=== PATIENT | female | born 2000 | race Hispanic/Latino ===

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

== ENCOUNTER 2019-09-25 07:20 | Emergency (ER) | payer SELFPAY | END 2019-09-25 08:48 | disposition short-term general hospital (02) | LOC: ERS 07:20 | DX: T76.21XA Adult sexual abuse, suspected, initial encounter (principal) | CPT/HCPCS: 99284 ==

== ENCOUNTER 2020-09-30 05:42 | Emergency (ER) | payer BC ==
[2020-09-30] MEDS ORDERED: Ketorolac Tromethamine 30 MG/ML VIAL ONE (06:06)
[2020-09-30] MEDS ORDERED: Ondansetron PF 4 MG/2 ML Vial ONE (06:06)
[2020-09-30 06:24] LABS: Hemoglobin 14.6 g/dL (12.0-16.0); Mean Corpuscular HGB CONC 31.8 g/dL (32.0-36.0); Mean Corpuscular Hemoglobin 27.8 pg (27.0-31.0); Mean Corpuscular Volume 87.3 fL (78.0-98.0); Mean Platelet Volume 9.2 fL (7.4-10.4); Platelet Count 179 thou/uL (130-400); RBC Distribution Width 12.1 % (11.5-14.5); Red Blood Cell (RBC) Count 5.24 mill/uL (4.20-5.40); White Blood Cell (WBC) Count 7.2 thou/uL (4.8-10.8)
[2020-09-30 06:30] LABS: BHCG - Serum Negative (NEGATIVE); Pregs Control Background? CLEAR/WHITE (CLR/WHITE); Pregs Control Bar Appear? YES (CONTROL BAR)
[2020-09-30 06:42] LABS: ALT (SGPT) 46 U/L (8-55); AST (SGOT) 64 U/L (5-34); Albumin 3.7 g/dL (3.5-5.0); Alkaline Phosphatase 99 U/L (40-110); Anion Gap 13 mmol/L (10-20); BUN (Urea Nitrogen) 9 mg/dL (7.0-18.7); Bilirubin, Total 0.3 mg/dL (0.2-1.2); Calc. Creatinine Clearance 0 mL/min (70-130); Calcium 8.7 mg/dL (7.8-10.44); Carbon Dioxide 24 mmol/L (22-29); Chloride 105 mmol/L (98-107); Globulin 3.5 g/dL (2.4-3.5); Glucose 105 mg/dL (70-105); Lipase 30 U/L (8-78); Potassium 4.1 mmol/L (3.5-5.1); Protein, Total 7.2 g/dL (6.0-8.3); Sodium 138 mmol/L (136-145)
[2020-09-30 06:48] LABS: Lymphocytes 66 % (21-51); MDiff Complete? YES; Neutrophil 30 % (42-75); Platelet Morphology Comment Appears Adequate; RBC Morphology Normal; Reactive Lymphocytes 4 % (0-10)
[2020-09-30 07:31] LABS: Bilirubin Negative (Negative); Blood, Urine Negative (Negative); Clarity Clear (Clear); Glucose, Urine (Dipstick) Normal (Negative); Ketone, Urine Negative (Negative); Leukocyte Negative Leu/uL (Negative); Nitrite Negative (Negative); Protein, Urine (Dipstick) Negative (Neg-Trace); Specific Gravity, Urine 1.019 (1.002-1.036); Urobilinogen Normal mg/dL (Less than 2); pH, Urine 6.5 (5.0-9.0)
== END 2020-09-30 08:04 | disposition home or self-care (01) ==
LOC: ERS 05:42
DX: R10.33 Periumbilical pain (principal); R11.0 Nausea
CPT/HCPCS: 80053; 81003; 83690; 84703; 85025; 96374; 96375; J1885; J2405

== ENCOUNTER 2020-11-01 01:32 | Emergency (ER) | payer BC ==
[2020-11-01] MEDS ORDERED: Mag-Al 1200 mg/1200 mg/30 ML UDCUP ONE (02:11)
[2020-11-01] MEDS ORDERED: Lidocaine Viscous Sol 2% 15 ml UD Cup ONE (02:11)
[2020-11-01] MEDS ORDERED: Ondansetron ODT 4 MG TAB ONE (02:12)
[2020-11-01 02:32] LABS: Bilirubin Negative (Negative); Blood, Urine Negative (Negative); Clarity Turbid (Clear); Glucose, Urine (Dipstick) Normal (Negative); Ketone, Urine Negative (Negative); Leukocyte Negative Leu/uL (Negative); Nitrite Negative (Negative); Protein, Urine (Dipstick) Negative (Neg-Trace); Specific Gravity, Urine 1.011 (1.002-1.036); Urobilinogen Normal mg/dL (Less than 2); pH, Urine 7.5 (5.0-9.0)
[2020-11-01 02:36] LABS: Pregnancy Test - Urine (BHCG) Negative (Negative); Pregu Control Background? CLEAR/WHITE (CLR/WHITE); Pregu Control Bar Appear? YES (CONTROL BAR); Specific Gravity 1.011 (1.002-1.036)
[2020-11-01] MEDS ORDERED: Ketorolac Tromethamine 30 MG/ML VIAL ONE (03:04)
== END 2020-11-01 03:11 | disposition home health service (06) ==
LOC: ERS 01:32
DX: K59.00 Constipation, unspecified (principal)
CPT/HCPCS: 81003; 81025; 96372; 99284; J1885; Q0162

== ENCOUNTER 2021-11-28 06:49 | Emergency (ER) | payer BC, SELFPAY ==
[2021-11-28] MEDS ORDERED: Dicyclomine 20 MG TAB ONE ×2 (07:14→07:19)
[2021-11-28] MEDS ORDERED: Ondansetron ODT 8 MG TAB ONE (07:14)
== END 2021-11-28 08:52 | disposition home or self-care (01) ==
LOC: ERS 06:49
DX: K29.70 Gastritis, unspecified, without bleeding (principal)
CPT/HCPCS: 99283; Q0162

== ENCOUNTER 2024-05-20 13:58 | Emergency (ER) | payer SELFPAY ==
[2024-05-20 15:03] LABS: #Basophils Less than 0.03 10x3/uL (0.0-0.2); %Basophils 0.3 % (0.0-1.0); %Eosinophils 1.3 % (0.0-10.0); %Monocytes 7.1 % (0.0-10.0); %Neutrophils 54.2 % (42.0-75.0); Hematocrit 43.7 % (36.0-47.0); Hemoglobin 14.4 g/dL (12.0-16.0); Mean Corpuscular Hemoglobin 27.7 pg (27.0-31.0); Mean Corpuscular Volume 84.2 fL (78.0-98.0); Mean Platelet Volume 11.5 fL (7.4-10.4); Platelet Count 206 10x3/uL (130-400); RBC Distribution Width 12.5 % (11.5-14.5); Red Blood Cell (RBC) Count 5.19 mill/uL (4.20-5.40)
[2024-05-20 15:19] LABS: BHCG - Serum Negative (NEGATIVE); Pregs Control Background? CLEAR/WHITE (CLR/WHITE); Pregs Control Bar Appear? YES (CONTROL BAR)
[2024-05-20 15:22] LABS: ALT (SGPT) 36 U/L (8-55); AST (SGOT) 25 U/L (5-34); Albumin 3.5 g/dL (3.5-5.0); Alkaline Phosphatase 96 U/L (40-110); Anion Gap 14 mmol/L (10-20); BUN (Urea Nitrogen) 10 mg/dL (7.0-18.7); Bilirubin, Total 0.4 mg/dL (0.2-1.2); Calc. Creatinine Clearance 0 mL/min (70-130); Calcium 8.9 mg/dL (7.8-10.44); Carbon Dioxide 22 mmol/L (22-29); Chloride 107 mmol/L (98-107); Estimated GFR 125; Globulin 3.8 g/dL (2.4-3.5); Glucose 102 mg/dL (70-105); Protein, Total 7.3 g/dL (6.0-8.3); Sodium 139 mmol/L (136-145)
[2024-05-20 15:30] LABS: Troponin I Less than 0.010 ng/mL (< 0.028)
[2024-05-20] MEDS ORDERED: Ketorolac Tromethamine 30 MG (1 mL) VIAL ONE (16:15)
== END 2024-05-20 17:24 | disposition home or self-care (01) ==
LOC: ERS 13:58
DX: K08.89 Other specified disorders of teeth and supporting structures (principal); M25.512 Pain in left shoulder
CPT/HCPCS: 36415; 71045; 80053; 84484; 84703; 85025; 93005; 96372; J1885

== ENCOUNTER 2024-06-30 08:16 | Emergency (ER) | payer SELFPAY ==
[2024-06-30] MEDS ORDERED: Ketorolac Tromethamine 30 MG (1 mL) VIAL ONE (09:19)
== END 2024-06-30 10:00 | disposition home or self-care (01) ==
LOC: ERS 08:16
DX: K08.89 Other specified disorders of teeth and supporting structures (principal)
CPT/HCPCS: 96372; 99282; J1885

== ENCOUNTER 2024-06-30 17:14 | Emergency (ER) | payer SELFPAY ==
[2024-06-30] MEDS ORDERED: Ketorolac Tromethamine 30 MG (1 mL) VIAL ONE (19:35)
== END 2024-06-30 19:57 | disposition home or self-care (01) ==
LOC: ERS 17:14
DX: K08.89 Other specified disorders of teeth and supporting structures (principal)
CPT/HCPCS: 96372; 99282; J1885